=== PATIENT | male | born 1995 | race African-American/Black ===

== ENCOUNTER 2021-02-01 20:03 | Emergency (ER) | payer MEDICAID ==
[~2021-02-01] VITALS: Ht 165.1 cm; Wt 81.3 kg
[2021-02-01] MEDS ORDERED: FAMOTIDINE 20MG/2ML VIAL IV STA (21:23)
[2021-02-01] MEDS ORDERED: SODIUM CHLORIDE 0.9% 1,000 ML IV ONE (21:30)
[2021-02-01 22:23] LABS: HEMATOCRIT. 42.2 % (42.0-52.0); MEAN CORPUSCULAR HEMOGLOBIN 33.5 pg (28.0-32.0); MEAN CORPUSCULAR VOLUME 94.5 fL (80.0-94.0); MEAN PLATELET VOLUME 8.2 fl (7.4-10.4); PLATELET 328 x1000/uL (130-400); RED BLOOD CELL COUNT 4.46 mill/uL (4.7-6.1); RED CELL DISTRIBUTION WIDTH 17.9 % (11.6-14.6)
[2021-02-01 22:28] LABS: CHLORIDE 108 mEq/L (98-107)
[2021-02-01 22:33] LABS: ETHANOL BLOOD < 10 mg/dL
[2021-02-01 22:42] LABS: PLATELET ESTIMATE NORMAL
[2021-02-02 01:45] VITALS: BP 115/68
== END 2021-02-02 03:58 | disposition home or self-care (01) ==
LOC: ER 20:03
DX: F41.9 Anxiety disorder, unspecified (principal); R74.01 Elevation of levels of liver transaminase levels
CPT/HCPCS: 36415; 80053; 80320; 83690; 84484; 85025; 93005; 96361; 96374; 99284; J3490; J7030; Z7610; G0480

== ENCOUNTER 2022-05-17 20:08 | Emergency (ER) | payer MEDICAID ==
[~2022-05-17] VITALS: Ht 165.1 cm; Wt 78.0 kg
[2022-05-17 20:10] VITALS: BP 167/104
== END 2022-05-18 01:30 | disposition left against medical advice (07) ==
LOC: ER 20:08
DX: Z53.21 Procedure and treatment not carried out due to patient leaving prior to being seen by health care provider (principal)
CPT/HCPCS: 93005